=== PATIENT | male | born 1960 | race Caucasian/White ===

== ENCOUNTER 2024-07-31 18:06 | Inpatient (IN) | payer MEDICARE ==
[~2024-07-31] VITALS: Ht 177.8 cm; Wt 95.4 kg
[~2024-07-31 18:06] MED LIST: FORTAMET500 MG PO; GEMCOR600 MG PO; REGLAN 10MG10 MG/TAB PO; ZANTAC 150150 MG PO
[2024-07-31 18:24] LABS: BASO # 0.1 K/mm3 (0.0-0.2); BASO % 0.4 % (0.0-2.0); EOS # 0.1 K/mm3 (0.0-0.7); EOS % 0.5 % (0.0-4.0); GRAN # 14.4 K/mm3 (1.4-6.5); GRAN % 79.3 % (42.2-75.2); LYMPH # 2.1 K/mm3 (1.2-3.4); LYMPH % 11.5 % (20.0-51.0); MEAN CELL VOLUME 92 fl (80.0-100.0); MEAN CORPUSCULAR HGB CONC 34 g/dl (33.0-37.0); MEAN PLATELET VOLUME 10.4 fl (7.4-10.4); MONO # 1.4 K/mm3 (0.1-0.6); MONO % 7.7 % (1.7-9.3); PLATELET COUNT 249 K/mm3 (130-400); REDCELL DISTRIBUTION WIDTH-CV 12.2 % (11.5-14.5)
[2024-07-31] MEDS ORDERED: Ketorolac 15 MG/ML VIAL IV ONE (18:30)
[2024-07-31 18:32] LABS: HEMATOCRIT 54.1 % (42.0-52.0); HEMOGLOBIN 18.2 g/dl (13.5-18.0); MEAN CORPUSCULAR HEMOGLOBIN 31 pg (27-31)
[2024-07-31 19:38] LABS: ALANINE AMINOTRANSFERASE 52 U/L (0-55); ALBUMIN 3.8 g/dL (3.4-4.8); ALKALINE PHOSPHATASE 124 U/L (40-150); ANION GAP 14 mmol/L (7-16); AST,SGOT 85 U/L (5-34); BILIRUBIN,TOTAL 1.2 mg/dL (0.2-1.2); BLOOD UREA NITROGEN 15 mg/dL (8-26); CALCIUM 9.5 mg/dL (8.4-10.2); CHLORIDE 104 mEq/L (98-107); CREATININE, serum 0.84 mg/dL (0.72-1.25); GLUCOSE 140 mg/dL (70-99); LIPASE 22 U/L (8-78); POTASSIUM 3.8 mEq/L (3.5-4.5); SODIUM 141 mEq/L (136-145); TOTAL PROTEIN 7.4 g/dl (6.2-8.1)
[2024-07-31 19:50] LABS: TROPONIN-I < 0.010 ng/mL (0.00-0.033)
[2024-07-31] MEDS ORDERED: Iohexol 300 - 100 ML VIAL IV ONE (20:30)
[2024-07-31] MEDS ORDERED: NS 100 ML IV ONE (20:30)
[2024-07-31 20:45] LABS: COLLECTION METHOD CLEAN CATCH
[2024-07-31 20:48] LABS: URINE APPEARANCE CLEAR (CLEAR/HAZY); URINE BLOOD NEGATIVE (NEGATIVE); URINE COLOR Dark Yellow (YELLOW); URINE GLUCOSE 3+ (NEGATIVE); URINE KETONE 1+ (NEGATIVE); URINE NITRATE NEGATIVE (NEGATIVE); URINE PROTEIN(semi-quant) NEGATIVE (NEGATIVE)
[2024-07-31] MEDS ORDERED: diphenhydrAMINE 50 MG/ML 1 ML VIAL IV ONE (21:45)
[2024-07-31] MEDS ORDERED: CRESTOR40 MG PO (21:57)
[2024-07-31] MEDS ORDERED: 00186-0370-20 IH (21:57)
[2024-07-31] MEDS ORDERED: FLOMAX 0.40.4 MG/CAP PO (21:58)
[2024-07-31] MEDS ORDERED: JANUVIA 100MG100 MG PO (21:58)
[2024-07-31] MEDS ORDERED: PRINIVIL20 MG PO (21:59)
[2024-07-31] MEDS ORDERED: AMBIEN 10MG10 MG PO (21:59)
[2024-07-31] MEDS ORDERED: SINGULAIR 110 MG/TAB PO (21:59)
[2024-07-31] MEDS ORDERED: SYNJARDY XR 121 EACH PO (22:00)
[2024-07-31] MEDS ORDERED: SYNTHROID 0.10.15 MG PO (22:01)
[2024-07-31] MEDS ORDERED: Zolpidem 10 MG TAB PO SCH (22:06)
[2024-07-31] MEDS ORDERED: Acetaminophen 500 MG TAB PO PRN (22:15)
[2024-07-31] MEDS ORDERED: LR 1,000 ML IV SCH (22:15)
[2024-07-31] MEDS ORDERED: Ondansetron 4 MG/2 ML VIAL IV PRN (22:15)
[2024-07-31 22:49] VITALS: BP 154/80; PULSE 115; TEMP 99.1
[2024-07-31] MEDS ORDERED: Glucagon 1 MG VIAL IM PRN (23:00)
[2024-07-31] MEDS ORDERED: Dextrose 50% Water 25 GM/50 ML SYRINGE IV PRN (23:00)
[2024-07-31] MEDS ORDERED: Dextrose (Glucose) 15 GM (4 x 3.75 GM) Chewable TABLET PACK PO PRN (23:00)
--- NOTE | 2024-07-31 23:01 | NUR ---
Patient arrived for admission from ED to room 342 for surgical observation. Patient transported via wheelchair and ambulated to the bed independently. A&0x4, vital signs stable at this time. Patient denies any chest/abdominal pain, diarrhea or constipation. Patient reports mild headache 4/10 aching and some nausea from what he states "not eating all day." Patient has a right 20g forearm IV noted to be clean, dry and intact. IV flushed and IV Zosyn started, pt tolerated treatment well. NPO diet to begin at 0000. Patient verbalized understaning. Bed lowered and locked, call berger within reach.
[2024-07-31 23:33] VITALS: BP_SYST 154
[2024-07-31 23:39] VITALS: BP 154/80
[2024-08-01] VITALS (19 sets, daily range): BP systolic 91–141; BP diastolic 51–77; PULSE 69–102; TEMP 98.4–99.5
[2024-08-01] MEDS ORDERED: Insulin Lispro (HumaLOG) SQ SCH
--- NOTE | 2024-08-01 06:07 | NUR ---
Patient laying asleep in bed. No acute events or distress noted since arrival to unit. Patient denies any pain at the moment. IV antibiotics infusing without any issue. Patient is NPO for abdominal ultrasound planned for this AM. Morning medications held for NPO status. Vital signs noted to be slightly abnormal BP 96/58, heart rate 102 and temperature of 99.5F. Patient denies any chills, SOB, dizziness or lightheadedness at this time. Will continue to monitor.
[2024-08-01 06:14] LABS: BASO # 0.1 K/mm3 (0.0-0.2); BASO % 0.4 % (0.0-2.0); EOS % 0.1 % (0.0-4.0); GRAN # 13.3 K/mm3 (1.4-6.5); GRAN % 81.8 % (42.2-75.2); HEMATOCRIT 47.2 % (42.0-52.0); LYMPH # 1.5 K/mm3 (1.2-3.4); LYMPH % 9.2 % (20.0-51.0); MEAN CELL VOLUME 90 fl (80.0-100.0); MEAN CORPUSCULAR HEMOGLOBIN 31 pg (27-31); MEAN CORPUSCULAR HGB CONC 34 g/dl (33.0-37.0); MEAN PLATELET VOLUME 10.2 fl (7.4-10.4); MONO # 1.3 K/mm3 (0.1-0.6); MONO % 7.9 % (1.7-9.3); PLATELET COUNT 217 K/mm3 (130-400); RED BLOOD COUNT 5.22 M/mm3 (4.20-5.60); REDCELL DISTRIBUTION WIDTH-CV 12.2 % (11.5-14.5)
[2024-08-01 06:19] LABS: HEMOGLOBIN 16.2 g/dl (13.5-18.0)
[2024-08-01 06:29] LABS: CALCIUM 8.4 mg/dL (8.4-10.2); CREATININE, serum 1.04 mg/dL (0.72-1.25); POTASSIUM 3.4 mEq/L (3.5-4.5)
[2024-08-01] MEDS ORDERED: Formoterol 20 MCG,Budesonide 0.5 MG IH SCH (07:00)
--- NOTE | 2024-08-01 07:21 | NUR ---
Bedside report received from ANGELA Begum. Pt resting in bed awake with no complaints. Call light within reach.
[2024-08-01] MEDS ORDERED: Lisinopril 20 MG TAB PO SCH (09:00)
--- NOTE | 2024-08-01 09:00 | NUR ---
Pt awake in bed with no complaints. Shift assessment completed. VSS. IVF infusing into Rt forearm with no complications. Pt has no request at this time. Call light within reach.
[2024-08-01] MEDS ORDERED: Ketorolac 15 MG/ML VIAL IV PRN (09:30)
[2024-08-01 09:46] LABS: CHOLESTEROL RISK RATIO 2.6
--- NOTE | 2024-08-01 09:52 | NUR ---
Social work student met with patient this morning. Pt lives in [place] with , Radha (p# [phone]). PCP is Samuel and pharmacy is [facility]. Pt has a living will on file and when asked about a DPOA-HC Pt expressed "yes" to having one and Radha being the primary agent. Pt is independent with ADLS and does not use any DME. Discharge Plan: Home.
[2024-08-01] MEDS ORDERED: Indocyanine Green 6.25 MG in Water For Injection,Sterile 1.25 ML IV SCH (15:00)
[2024-08-01] MEDS ORDERED: Morphine 2 MG/1 ML VIAL [PACU/SDC ONLY] IV PRN (16:00)
[2024-08-01] MEDS ORDERED: HYDROmorphone 1 MG/1 ML SYRINGE [PACU/SDC ONLY] IV PRN (16:00)
[2024-08-01] MEDS ORDERED: LR 1,000 ML IV SCH (16:00)
[2024-08-01] MEDS ORDERED: fentaNYL 50 MCG/ML 1 ML SYRINGE/VIAL [PACU/SDC ONLY] IV PRN (16:00)
[2024-08-01] MEDS ORDERED: droPERidol 2.5 MG/ML 2 ML VIAL IV PRN (16:00)
[2024-08-01] MEDS ORDERED: Ondansetron 4 MG/2 ML VIAL IV PRN ×2 (16:00→18:00)
[2024-08-01] MEDS ORDERED: Rocuronium 50 MG/5 ML Multi-Dose VIAL ONE ×2 (16:03→17:31)
[2024-08-01] MEDS ORDERED: fentaNYL 50 MCG/ML 2 ML VIAL ONE ×2 (16:04→17:22)
[2024-08-01] MEDS ORDERED: dexAMETHasone 10 MG/ML VIAL ONE (16:05)
[2024-08-01] MEDS ORDERED: Ondansetron 4 MG/2 ML VIAL ONE (16:05)
[2024-08-01] MEDS ORDERED: Glycopyrrolate 0.2 MG/ML 1 ML VIAL ONE (16:05)
[2024-08-01] MEDS ORDERED: Lidocaine PF 2% (20 MG/ML) 5 ML VIAL ONE (16:05)
[2024-08-01] MEDS ORDERED: hydrALAZINE 20 MG/ML 1 ML VIAL IV PRN (16:15)
--- NOTE | 2024-08-01 16:39 | NUR ---
This nurse went to hang pre-op fluids and obtain consent when pt was not in room. OR charge nurse called and informed this nurse that pt was in OR.
[2024-08-01] MEDS ORDERED: NS 10 ML IV ONE (16:48)
[2024-08-01] MEDS ORDERED: ePHEDrine 50 MG/ML VIAL ONE (16:51)
[2024-08-01] MEDS ORDERED: NORCO 325 MG-51 TAB PO (17:55)
[2024-08-01] MEDS ORDERED: Topical Skin Adhesive 1 EACH (1 ML) TOP ONE ×2 (17:55→18:00)
[2024-08-01] MEDS ORDERED: HYDROmorphone 0.5 MG/0.5 ML SYRINGE IV PRN (18:00)
[2024-08-01] MEDS ORDERED: Naloxone 0.4 MG/ML VIAL IV PRN (18:00)
--- NOTE | 2024-08-01 18:25 | NUR ---
Report received from LAPPING MACHINE OPERATORANGELA Meyer by phone. Awaiting pt transfer back to surgical floor.
--- NOTE | 2024-08-01 20:26 | NUR ---
Patient sitting up in bed, A&ox4. Patient reports 7/10 aching abdominal pain. PRN Tylenol given and tolerated well. No acute distress noted at this time. Post op vital signs in process. Patient advanced to room air, O2 sats are WNL. Night medications passed patient tolerating well. 20g right forearm IV present, noted to be dry, clean and intact. SCDs in place. Patient educated to call if he needs to use the restroom as he is post op. Bed lowered and locked, call berger within reach.
[2024-08-01] MEDS ORDERED: Atorvastatin 80 MG TAB PO SCH (21:00)
[2024-08-02 03:24] VITALS: BP 104/57; PULSE 70; TEMP 98.5
[2024-08-02 03:46] VITALS: BP_SYST 104
[2024-08-02 06:37] LABS: BASO % 0.2 % (0.0-2.0); EOS % 0.1 % (0.0-4.0); GRAN # 11.9 K/mm3 (1.4-6.5); GRAN % 85.3 % (42.2-75.2); HEMATOCRIT 45.2 % (42.0-52.0); HEMOGLOBIN 15.3 g/dl (13.5-18.0); LYMPH # 0.9 K/mm3 (1.2-3.4); LYMPH % 6.5 % (20.0-51.0); MEAN CELL VOLUME 91 fl (80.0-100.0); MEAN CORPUSCULAR HEMOGLOBIN 31 pg (27-31); MEAN CORPUSCULAR HGB CONC 34 g/dl (33.0-37.0); MONO # 1.1 K/mm3 (0.1-0.6); MONO % 7.5 % (1.7-9.3); PLATELET COUNT 200 K/mm3 (130-400); RED BLOOD COUNT 4.95 M/mm3 (4.20-5.60); REDCELL DISTRIBUTION WIDTH-CV 12.3 % (11.5-14.5)
[2024-08-02 06:52] LABS: CALCIUM 8.8 mg/dL (8.4-10.2); CREATININE, serum 0.9 mg/dL (0.72-1.25); POTASSIUM 4.2 mEq/L (3.5-4.5)
[2024-08-02 07:36] VITALS: BP 124/73; PULSE 71; TEMP 98.3
[2024-08-02] MEDS ORDERED: Insulin Lispro (HumaLOG) SQ SCH (08:00)
[2024-08-02] MEDS ORDERED: AMOXICILLIN 8751 TAB PO ×2 (08:57→10:50)
[2024-08-02 09:00] VITALS: BP_SYST 124
[2024-08-02] MEDS ORDERED: NORCO 325 MG-51 TAB PO ×2 (10:50→11:08)
--- NOTE | 2024-08-02 12:00 | NUR ---
DISCHARGE INSTRUCTIONS REVIEWED WITH PT. REVIEWED NEW MEDICATIONS. QUESTIONS ANSWERED. PT LEFT UNIT AMBULATORY WITH STAFF.
== END 2024-08-02 12:02 | disposition home or self-care (01) | DRG 419 ==
LOC: COL.ER 18:06 → SURG 22:22
PROVIDERS: Emergency Medicine; Physician Assistant; Surgery; ADMIT Internal Medicine
PROC: 8E0W4CZ Robotic Assisted Procedure of Trunk Region, Percutaneous Endoscopic Approach (ICD-10-PCS; 2024-08-01)
PROC: 0FT44ZZ Resection of Gallbladder, Percutaneous Endoscopic Approach (ICD-10-PCS; principal; 2024-08-01 17:00)
DX: K80.00 Calculus of gallbladder with acute cholecystitis without obstruction (principal); E11.9 Type 2 diabetes mellitus without complications; I10 Essential (primary) hypertension; R11.10 Vomiting, unspecified; N40.0 Benign prostatic hyperplasia without lower urinary tract symptoms; E03.9 Hypothyroidism, unspecified; E78.5 Hyperlipidemia, unspecified; G47.00 Insomnia, unspecified; Z79.890 Hormone replacement therapy; Z79.84 Long term (current) use of oral hypoglycemic drugs; Z79.899 Other long term (current) drug therapy
CPT/HCPCS: J0690; J1100; J1200; J1885; J2405; J2543; J2704; J3010; J7120; Q9967